=== PATIENT | female | born 1935 | race Caucasian/White ===

== ENCOUNTER 2022-11-24 19:24 | Emergency (ER) | payer MEDICARE, BC ==
--- NOTE | 2022-11-24 19:56 | ED ---
Abdominal Pain HPI - General Chief Complaint: Abdominal Pain Stated Complaint: constipation Time Seen by Provider: 11/24/22 19:40 Source: patient, family, EMS, RN notes reviewed Mode of arrival: EMS Limitations: no limitations - History of Present Illness Initial Comments: Patient is an 79-year-old female presenting to the emergency room with complaints of abdominal pain, distention and constipation. She reports no significant bowel movement in approximately 1 week and her last bowel movement was pebble-like. She feels as though she has a blockage preventing her from being able to defecate. She reports increase in abdominal swelling with increase in pain over the last 24-48 hours causing her to call an ambulance to bring her to the emergency room. She denies any nausea or vomiting. She denies any bloody stools or mucus in her stool. She denies any unintentional weight changes or diarrhea. She has a past medical history significant for hypothyroidism, DVT on Xarelto, GERD, COPD with chronic steroid use. She has had issues with constipation in the past but denies any episodes similar to her current presentation. Review of Systems ROS Statement: Those systems with pertinent positive or pertinent negative responses have been documented in the HPI. ROS Other: All systems not noted in ROS Statement are negative. Past Medical History Past Medical History: Atrial Fibrillation, Cancer, COPD, Thyroid Disorder Additional Past Medical History / Comment(s): Carotid narrowing History of Any Multi-Drug Resistant Organisms: None Reported Past Surgical History: Bladder Surgery, Hysterectomy Additional Past Surgical History / Comment(s): Hemeroidectomy, cartoid stent Past Psychological History: No Psychological Hx Reported Smoking Status: Former smoker General Exam - General Exam Comments Initial Comments: GENERAL: No acute distress, well developed, well nourished. HEENT: Normocephalic, atraumatic. Pupils equal, round, reactive to light. Moist mucous membranes. Very hard of hearing. LUNGS: No respiratory distress. Diminished by basilar artery otherwise clear to auscultation, no adventitious sounds, no use of accessory muscles. HEART: Regular rate and rhythm without murmur, rub, or gallop. ABDOMEN: Normal bowel sounds. Soft, rounded, mildly distended lower portion. Mild tenderness bilateral lower quadrants. BACK: Normal inspection. EXTREMITIES: No edema. No tenderness. Moves all extremities. NEUROLOGIC: Alert & oriented x 3. CN II-XII grossly intact. PSYCHIATRIC: Normal affect and behavior. DERMATOLOGIC: Band-Aids to skin tears on left elbow and forearm noted. Limitations: no limitations Course Vital Signs 11/24/22 19:36 Temperature 98.3 F Pulse Rate 92 Respiratory 18 Rate Blood Pressure 115/58 O2 Sat by Pulse 95 Oximetry Medical Decision Making - Medical Decision Making Was pt. sent in by a medical professional or institution (, PA, [employer]TAIN, urgent care, hospital, or fci...) When possible be specific @ -No Did you speak to anyone other than the patient for history (EMS, parent, family, police, friend...)? What history was obtained from this source @ -EMS report and son Did you review nursing and triage notes (agree or disagree)? Why? @ -I reviewed and agree with nursing and triage notes Were old charts reviewed (outside hosp., previous admission, EMS record, old EKG, old radiological studies, urgent care reports/EKG's, fci records)? Report findings @ -No old charts were reviewed Differential Diagnosis (chest pain, altered mental status, abdominal pain women, abdominal pain men, vaginal bleeding, weakness, fever, dyspnea, syncope, headache, dizziness, GI bleed, back pain, seizure, CVA, palpatations, mental health)? @ -Differential Abdominal Pain Women: Appendicitis, Cholecystitis, diverticulosis, ischemic bowel, pancreatitis, hepatitis, UTI, gastroenteritis, AAA, incarcerated hernia, bowel obstruction, constipation, inflammatory bowel, hepatitis, peptic ulcer disease, splenic infarction, perforated viscus, vulvitis, ovarian torsion, PID, kidney stone, placenta abruption, this is not meant to be an all-inclusive list EKG interpreted by me (3pts min.). @ -Sinus rhythm, ventricular rate 86 bpm, [place] interval 168 ms, QRS duration 79 ms, QT/QTC 358/401 ms, PRT axes 54, 57, 18 X-rays interpreted by me (1pt min.). @ -None done CT interpreted by me (1pt min.). @ -CT abdomen and pelvis demonstrate significant constipation with fecal impaction noted in the rectal vault. No evidence of obstruction. U/S interpreted by me (1pt. min.). @ -None done What testing was considered but not performed or refused? (CT, X-rays, U/S, labs)? Why? @ -None What meds were considered but not given or refused? Why? @ -None Did you discuss the management of the patient with other professionals (professionals i.e. , PA, [employer] CAPTAIN, lab, RT, psych nurse, social media campaign manager, forensic engineer, teacher, air defense artillery officer, showcase maker)? Give summary @ -No Was smoking cessation discussed for >3mins.? @ -No Was critical care preformed (if so, how long)? @ -No Were there social determinants of health that impacted care today? How? (Homelessness, low income, unemployed, alcoholism, drug addiction, transportation, low edu. Level, literacy, decrease access to med. care, prison, rehab)? @ -No Was there de-escalation of care discussed even if they declined (Discuss DNR or withdrawal of care, Hospice)? DNR status @ -No What co-morbidities impacted this encounter? (DM, HTN, Smoking, COPD, CAD, Cancer, CVA, ARF, Chemo, Hep., AIDS, mental health diagnosis, sleep apnea, morbid obesity)? @ -None Was patient admitted / discharged? Hospital course, mention meds given and route, prescriptions, significant lab abnormalities, going to OR and other pertinent info. @ -Constipation with abdominal pain and distention concern for potential obstruction though low probability in the setting of lack of nausea and vomiting with continued good oral intake. Will obtain CMP, amylase, lipase, urinalysis and CBC along with CT of the abdomen without contrast. Currently resting comfortably and hemodynamically stable, no indication for any medications at this time. Laboratory studies revealed a potassium of 6.0 and a BUN of 28 normal creatinine. CBC unremarkable. Will obtain EKG at magnesium level and give 1 L fluid bolus. EKG sinus rhythm. Tolerated IV fluids well. CT of the abdomen demonstrate a constipation with fecal impaction. Repeat potassium normal at 3.7.Fleet Enema given with good response of stool burden release. Manual disimpaction offered and declined. Increased shortness of breath with activity of defecating. Home albuterol nebulized treatment ordered to be given prior to discharge home but no indication for further workup regarding COPD exacerbation. Will discharge home in stable condition with education regarding constipation and follow-up with primary care provider. Undiagnosed new problem with uncertain prognosis? @ -No Drug Therapy requiring intensive monitoring for toxicity (Heparin, Nitro, Insulin, Cardizem)? @ -No Were any procedures done? @ -No Diagnosis/symptom? @ -Constipation Acute, or Chronic, or Acute on Chronic? @ -Acute on chronic Uncomplicated (without systemic symptoms) or Complicated (systemic symptoms)? @ -Uncomplicated Side effects of treatment? @ -No Exacerbation, Progression, or Severe Exacerbation? @ -No Poses a threat to life or bodily function? How? (Chest pain, [place], MA, pneumonia, PE, COPD, DKA, ARF, appy, cholecystitis, CVA, Diverticulitis, Homicidal, Suicidal, threat to staff... and all critical care pts) @ -No Case discussed with Dr. Issa. - Lab Data Result diagrams: 11/24/22 20:03 11/24/22 21:56 Lab Results 11/24/22 11/24/22 11/24/22 Range/Units 20:03 20:03 21:07 WBC 8.5 (3.8-10.6) k/uL RBC 4.72 (3.80-5.40) m/uL Hgb 12.9 (11.4-16.0) gm/dL Hct 40.8 (34.0-46.0) % MCV 86.5 (80.0-100.0) fL MCH 27.5 (25.0-35.0) pg MCHC 31.8 (31.0-37.0) g/dL RDW 14.5 (11.5-15.5) % Plt Count 215 (150-450) k/uL MPV 8.9 Neutrophils % 73 % Lymphocytes % 13 % Monocytes % 10 % Eosinophils % 2 % Basophils % 1 % Neutrophils # 6.2 (1.3-7.7) k/uL Lymphocytes # 1.1 (1.0-4.8) k/uL Monocytes # 0.8 (0-1.0) k/uL Eosinophils # 0.1 (0-0.7) k/uL Basophils # 0.0 (0-0.2) k/uL Sodium 140 (137-145) mmol/L Potassium 6.0 H (3.5-5.1) mmol/L Chloride 110 H (98-107) mmol/L Carbon Dioxide 22 (22-30) mmol/L Anion Gap 8 mmol/L BUN 28 H (7-17) mg/dL Creatinine 0.85 (0.52-1.04) mg/dL Est GFR (CKD-EPI)AfAm 71 (>60 ml/min/1.73 sqM) Est GFR (CKD-EPI)NonAf 62 (>60 ml/min/1.73 sqM) Glucose 95 (74-99) mg/dL Calcium 8.7 (8.4-10.2) mg/dL Magnesium Cancelled 1.9 Total Bilirubin 1.5 H (0.2-1.3) mg/dL AST 72 H (14-36) U/L ALT 32 (4-34) U/L Alkaline Phosphatase 70 (38-126) U/L Total Protein 7.4 (6.3-8.2) g/dL Albumin 4.5 (3.5-5.0) g/dL Amylase 95 (30-110) U/L Lipase 152 (23-300) U/L 11/24/22 Range/Units 21:56 WBC (3.8-10.6) k/uL RBC (3.80-5.40) m/uL Hgb (11.4-16.0) gm/dL Hct (34.0-46.0) % MCV (80.0-100.0) fL MCH (25.0-35.0) pg MCHC (31.0-37.0) g/dL RDW (11.5-15.5) % Plt Count (150-450) k/uL MPV Neutrophils % % Lymphocytes % % Monocytes % % Eosinophils % % Basophils % % Neutrophils # (1.3-7.7) k/uL Lymphocytes # (1.0-4.8) k/uL Monocytes # (0-1.0) k/uL Eosinophils # (0-0.7) k/uL Basophils # (0-0.2) k/uL Sodium (137-145) mmol/L Potassium 3.7 (3.5-5.1) mmol/L Chloride (98-107) mmol/L Carbon Dioxide (22-30) mmol/L Anion Gap mmol/L BUN (7-17) mg/dL Creatinine (0.52-1.04) mg/dL Est GFR (CKD-EPI)AfAm (>60 ml/min/1.73 sqM) Est GFR (CKD-EPI)NonAf (>60 ml/min/1.73 sqM) Glucose (74-99) mg/dL Calcium (8.4-10.2) mg/dL Magnesium Total Bilirubin (0.2-1.3) mg/dL AST (14-36) U/L ALT (4-34) U/L Alkaline Phosphatase (38-126) U/L Total Protein (6.3-8.2) g/dL Albumin (3.5-5.0) g/dL Amylase (30-110) U/L Lipase (23-300) U/L Disposition Clinical Impression: Constipation Disposition: HOME SELF-CARE Condition: Stable Instructions (If sedation given, give patient instructions): Constipation (ED) Additional Instructions: Please follow-up with your primary care provider. Continued use of daily stool softeners encouraged. High fiber diet and good fluid intake encouraged. Please return to the Emergency Department if symptoms worsen or any other concerns. Is patient prescribed a controlled substance at d/c from ED?: No Referrals: None,Stated [Primary Care Provider] - 1-2 days Time of Disposition: 22:55
[2022-11-24 20:17] LABS: Basophils % (A) 1 %; Eosinophils # (A) 0.1 k/uL (0-0.7); Eosinophils % (A) 2 %; HCT 40.8 % (34.0-46.0); HGB 12.9 gm/dL (11.4-16.0); Lymphocytes # (A) 1.1 k/uL (1.0-4.8); Lymphocytes % (A) 13 %; MCH 27.5 pg (25.0-35.0); MCHC 31.8 g/dL (31.0-37.0); MCV 86.5 fL (80.0-100.0); Mean Platelet Volume 8.9; Monocytes # (A) 0.8 k/uL (0-1.0); Monocytes % (A) 10 %; Neutrophils # (A) 6.2 k/uL (1.3-7.7); Neutrophils % (A) 73 %; Platelet Count 215 k/uL (150-450); RBC 4.72 m/uL (3.80-5.40); RDW 14.5 % (11.5-15.5); WBC 8.5 k/uL (3.8-10.6)
[2022-11-24 20:32] LABS: Albumin 4.5 g/dL (3.5-5.0); Calcium 8.7 mg/dL (8.4-10.2); Total Bilirubin 1.5 mg/dL (0.2-1.3); Total Protein 7.4 g/dL (6.3-8.2)
[2022-11-24] MEDS ORDERED: SODIUM CHLORIDE 0.9% 1,000 ML IV STA (20:47)
--- NOTE | 2022-11-24 21:17 | CT ---
EXAMINATION TYPE: CT abdomen pelvis wo con DATE OF EXAM: 11/24/2022 COMPARISON: None HISTORY: Abdomen pain. CT DLP: 606.1 mGycm Automated exposure control for dose reduction was used. Images obtained from the diaphragm to the floor the pelvis with no contrast. The lung bases show minimal reticular interstitial density. No pleural effusion. Heart size is normal . No pericardial effusion. There is coronary artery calcification. Liver and spleen are intact. The b ile ducts are not dilated. Gallbladder appears normal. There is no evidence of pancreatic mass. The s tomach is intact. There is no adrenal mass. Kidneys have normal size and contour. No hydronephrosis. Ureters are not di lated. No retroperitoneal adenopathy. There is retained fecal material in the large bowel with rectal fecal impaction. Rectum measures 9.6 cm. No inguinal hernia. No mesenteric edema. No ascites or free air. No sign of a bowel obstruction. Appendix is not seen. There is degenerative subluxation at L3-4 and L4-5. No lumbar compression fracture. Multilevel disc s pace narrowing present in the mid and lower lumbar spine. The bony pelvis is intact. The hip joints a re intact. Sacroiliac joints are intact. IMPRESSION: Constipation and rectal fecal impaction. Atherosclerotic vascular disease.
[2022-11-24] MEDS ORDERED: NA PHOS,M-B/NA PHOS,DI-BA 133 ML ENEMA RECTAL STA (21:46)
[2022-11-24] MEDS ORDERED: ALBUTEROL NEBULIZED 2.5 MG/3 ML INHALATION STA (22:48)
[2022-11-25 00:11] VITALS: BP 120/72; PULSE 86; RESP 16; TEMP 98.2
== END 2022-11-25 00:36 | disposition home or self-care (01) ==
LOC: EC 19:24
DX: K59.00 Constipation, unspecified (principal); I25.10 Atherosclerotic heart disease of native coronary artery without angina pectoris; I48.91 Unspecified atrial fibrillation; J44.9 Chronic obstructive pulmonary disease, unspecified; Z87.891 Personal history of nicotine dependence
CPT/HCPCS: 36415; 74176; 80053; 82150; 83690; 83735; 84132; 85025; 93005; 94640; 96360; 99285